=== PATIENT | male | born 1995 | race Caucasian/White ===

== ENCOUNTER → 2017-05-26 | Emergency (ER) | payer OTHER ==
[~2017-05-26] VITALS: Ht 177.8 cm; Wt 76.4 kg
[~2017-05-26] MED LIST: NORCO 325 MG-51 TAB PO
[2017-05-26 18:18] VITALS: BP 137/60; TEMP 98.6
[2017-05-26 19:37] VITALS: PULSE 62
== END | disposition home or self-care (01) ==
LOC: COL.ER 18:17
DX: S52.571A Other intraarticular fracture of lower end of right radius, initial encounter for closed fracture (principal); S80.211A Abrasion, right knee, initial encounter; V28.4XXA Motorcycle driver injured in noncollision transport accident in traffic accident, initial encounter; Y92.410 Unspecified street and highway as the place of occurrence of the external cause